=== PATIENT | female | born 1955 ===

== ENCOUNTER 2017-03-16 23:24 | Emergency (ER) | payer BC ==
[2017-03-17 00:08] VITALS: BP 118/72; PULSE 58; RESP 14; TEMP 98.3; O2SAT 98
[2017-03-17] MEDS ORDERED: Sodium Chloride 0.9% 1,000 ML IV STA (00:42)
[2017-03-17 00:59] LABS: BASO # 0.1 K/uL (0.0-0.2); BASO % 1.1 % (0.0-2.0); EOS # 0.1 K/uL (0.0-0.7); EOS % 0.8 % (0.0-4.0); HEMATOCRIT 36.2 % (34.0-47.0); LYMPH # 3.6 K/uL (1.0-4.3); LYMPH % 39.2 % (20.0-40.0); MEAN CELL VOLUME 93.4 fl (81.0-99.0); MEAN CORPUSCULAR HEMOGLOBIN 31.4 pg (27.0-31.0); MEAN CORPUSCULAR HGB CONC 33.6 g/dL (33.0-37.0); MEAN PLATELET VOLUME 8.8 fl (7.2-11.7); MONO # 0.6 K/uL (0.0-0.8); MONO % 6.2 % (0.0-10.0); NEUT # 4.8 K/uL (1.8-7.0); NEUT % 52.7 % (50.0-75.0); NRBC % 0.1 % (0.0-0.0); RED CELL DISTRIBUTION WIDTH 13.4 % (11.5-14.5); WHITE BLOOD COUNT 9.2 K/uL (4.8-10.8)
[2017-03-17 01:10] LABS: ALB/GLOB RATIO 1.5 (1.0-2.1); ALKALINE PHOSPHATASE 86 U/L (38-126); ALT/SGPT 50 U/L (9-52); AST/SGOT 39 U/L (14-36); BILIRUBIN,TOTAL 0.9 mg/dl (0.2-1.3); BLOOD UREA NITROGEN 15 mg/dl (7-17); CALCIUM 9.2 mg/dL (8.4-10.2); CARBON DIOXIDE 26 mmol/L (22-30); CHLORIDE 104 mmol/L (98-107); GFR AFRICAN-AMERICAN > 60; GLUCOSE,RANDOM 104 mg/dL (65-105); LIPASE 73 U/L (23-300); POTASSIUM 4.1 MMOL/L (3.6-5.0); SODIUM 138 mmol/l (132-148); TOTAL PROTEIN 7.1 G/DL (6.3-8.2)
--- NOTE | 2017-03-17 01:15 | ED PDOC ---
HPI: General Adult Time Seen by Provider: 03/17/17 00:05 Chief Complaint (Nursing): Upper Extremity Problem/Injury Chief Complaint (Provider): Multiple complaints History Per: Patient History/Exam Limitations: no limitations Additional Complaint(s): Josie Reynolds, a 62 year old female, presents to the ED today with multiple complaints. The patient firstly complains of upper right back pain which radiates down the right arm into the elbow. She states that the pain gets worse with movement. Denies fall or injury. Secondly the patient is complaining of epigastric pain which she describes as a "hunger like" pain. She says it's associated with nausea but no vomiting. Patient also reports that on occasion her right arm feels heavy but not weak. Past Medical History Reviewed: Historical Data, Nursing Documentation, Vital Signs Vital Signs: Last Vital Signs Temp 98.3 F 03/17/17 00:04 Pulse 58 L 03/17/17 00:04 Resp 14 03/17/17 00:04 BP 118/72 03/17/17 00:04 Pulse Ox 98 03/17/17 01:23 - Medical History PMH: Back Problems, HTN, Hypercholesterolemia, Hyperlipidemia - Surgical History Surgical History: Appendectomy, Cholecystectomy - Family History Family History: States: Unknown Family Hx - Home Medications Home Medications: Ambulatory Orders Medication Instructions Recorded Ibuprofen [Motrin Tab] 600 mg PO Q6 PRN 11/24/16 Aspirin [Adult Low Dose Aspirin EC] 81 mg PO DAILY #30 tablet. 11/25/16 Atorvastatin [Lipitor] 40 mg PO DAILY #30 tab 11/25/16 amLODIPine [Norvasc] 5 mg PO DAILY #30 tab 11/25/16 Famotidine [Pepcid] 20 mg PO BID #20 tab 03/17/17 Ibuprofen [Motrin Tab] 600 mg PO Q6 #30 tab 03/17/17 - Allergies Allergies/Adverse Reactions: Allergies Allergy/AdvReac Type Severity Reaction Status Date / Time No Known Allergies Allergy Verified 03/17/17 00:04 Review of Systems ROS Statement: Except As Marked, All Systems Reviewed And Found Negative Gastrointestinal: Positive for: Nausea, Abdominal Pain (Epigastric abdominal pain). Negative for: Vomiting Musculoskeletal: Positive for: Back Pain (back pain radiating down the right arm into the elbow) Physical Exam - Reviewed Nursing Documentation Reviewed: Yes Vital Signs Reviewed: Yes - Physical Exam Appears: Positive for: Non-toxic, No Acute Distress Head Exam: Positive for: ATRAUMATIC, NORMAL INSPECTION, NORMOCEPHALIC Skin: Positive for: Normal Color, Warm, Dry Eye Exam: Positive for: Normal appearance, EOMI, PERRL ENT: Positive for: Normal ENT Inspection Neck: Positive for: Normal, Painless ROM, Supple Cardiovascular/Chest: Positive for: Regular Rate, Rhythm, Chest Non Tender. Negative for: Tachycardia Respiratory: Positive for: Normal Breath Sounds. Negative for: Wheezing, Respiratory Distress Gastrointestinal/Abdominal: Positive for: Bowel Sounds, Soft, Tenderness (Mild epigastric tenderness to palpation) Extremity: Positive for: Normal ROM, Other (Motor strength equal in all 4 extremities.). Negative for: Tenderness, Pedal Edema, Deformity, Swelling Neurologic/Psych: Positive for: Alert, Oriented, Gait - Laboratory Results Result Diagrams: 03/17/17 00:56 03/17/17 00:56 - ECG O2 Sat by Pulse Oximetry: 98 (RA) Pulse Ox Interpretation: Normal Medical Decision Making Medical Decision Makin Initial Impression: Musculoskeletal Pain, Possible Nerve Entrapment, Possible Gastritis Initial Plan: * EKG * Comp Metabolic Panel * Lipase * Troponin * CBC * Chest Xray * NS 1000mls IV 500mls/hr * Pepcid 20mg IVP * Toradol 15mg IVP * Reevaluation 130 PT. feeling much better. Stable for d/c. encouraged f/u w/ PMD, return precautions given. Scribe Attestation Documented by Kell Billings acting as a scribe for Andrews Erwin MD. Provider Attestation All medical record entries made by the Scribe were at my direction and personally dictated by me. I have reviewed the chart and agree that the record accurately reflects my personal performance of the history, physical exam, medical decision making, and the department course for this patient. I have also personally directed, reviewed, and agree with the discharge instructions and disposition. Disposition - Clinical Impression Clinical Impression: Musculoskeletal pain - Disposition Referrals: Columba Carlos DO [Primary Care Provider] - Disposition: Routine/Home Disposition Time: 01:30 Condition: STABLE Prescriptions: Famotidine [Pepcid] 20 mg PO BID #20 tab Ibuprofen [Motrin Tab] 600 mg PO Q6 #30 tab Instructions: Paresthesia (ED) Forms: [employer] (Bulgarian)
--- NOTE | 2017-03-17 13:54 | RAD ---
HISTORY: Pneumonia. COMPARISON: 11/24/2016. TECHNIQUE: Chest PA and lateral FINDINGS: LUNGS: No active pulmonary disease. PLEURA: No significant pleural effusion identified. No pneumothorax apparent. CARDIOVASCULAR: No radiographic findings to suggest acute or significant cardiovascular disease. OSSEOUS STRUCTURES: No significant abnormalities. Mild thoracolumbar scoliosis. VISUALIZED UPPER ABDOMEN: Normal. OTHER FINDINGS: None. IMPRESSION: No active disease. No significant interval change compared to the prior examination(s).
--- NOTE | 2017-03-19 18:32 | CARD ---
APPROVED REPORT EKG Measurement Heart [id number] [place] [id number] <Conclusion> Sinus bradycardia Otherwise normal ECG
== END 2017-03-17 02:35 | disposition home or self-care (01) ==
LOC: H.ER 23:24
DX: M79.1 Myalgia (principal); R10.13 Epigastric pain; R20.2 Paresthesia of skin; E78.00 Pure hypercholesterolemia, unspecified; I10 Essential (primary) hypertension; Z79.82 Long term (current) use of aspirin
CPT/HCPCS: 71020; 80053; 83690; 84484; 85025; 96374; 96375; 99281; J1885; J2405; J7040

== ENCOUNTER 2017-05-10 19:29 | Inpatient (IN) | payer BC ==
--- NOTE | 2017-05-10 20:06 | ED PDOC ---
HPI: Female Pain Chief Complaint (Provider): lower abdominal pain x 5 hrs History Per: Patient History/Exam Limitations: no limitations Onset/Duration Of Symptoms: Hrs Current Symptoms Are (Timing): Still Present Severity: Moderate Pain Scale Rating Of: 8 Quality Of Discomfort: Sharp Associated Symptoms: Urinary Symptoms. denies: Fever, Chills, Nausea, Vomiting , Diarrhea, Back Pain Alleviating Factors: None Additional History Per: Patient Additional Complaint(s): CC: lower abd pain x 5 hrs 62 y/o F presenting with sharp acute onset lower abdominal pain since 3 pm today. Associated with hematuria, frequency and burning with urination. Denies f /c/back pain/n/v/d. States history of kidney stones in two children but no personal history. Aggravated by movement, no alleviating factors. Tried to take some OTC pyridine without any improvement. No vaginal bleeding, hx of partial hysterectomy. PMD: Dr. Azul Abnormal Vaginal Bleeding: No Last Menstral Period: post menopausal <Tru Anderson - Last Filed: 05/11/17 00:27> <Frandy Torres - Last Filed: 05/11/17 05:14> Time Seen by Provider: 05/10/17 19:39 Chief Complaint (Nursing): Female Genitourinary Past Medical History Vital Signs: Last Vital Signs Temp 98.9 F 05/10/17 19:36 Pulse 108 H 05/10/17 19:36 Resp 18 05/10/17 19:36 BP 150/91 H 05/10/17 19:36 Pulse Ox 97 05/10/17 19:36 - Medical History PMH: Back Problems, HTN, Hypercholesterolemia, Hyperlipidemia - Surgical History Surgical History: Appendectomy, Cholecystectomy - Family History Family History: States: Unknown Family Hx <Tru Anderson - Last Filed: 05/11/17 00:27> Vital Signs: Last Vital Signs Temp 98.6 F 05/11/17 04:31 Pulse 74 05/11/17 04:31 Resp 19 05/11/17 04:31 BP 100/68 05/11/17 04:31 Pulse Ox 97 05/11/17 04:31 <Frandy Torres - Last Filed: 05/11/17 05:14> - Home Medications Home Medications: Ambulatory Orders Medication Instructions Recorded Atorvastatin [Lipitor] 40 mg PO DAILY 05/10/17 Lisinopril [Zestril] 20 mg PO DAILY 05/10/17 Omeprazole [Omeprazole] 40 mg PO PRN PRN 05/10/17 - Allergies Allergies/Adverse Reactions: Allergies Allergy/AdvReac Type Severity Reaction Status Date / Time No Known Allergies Allergy Verified 03/17/17 00:04 Review of Systems ROS Statement: Except As Marked, All Systems Reviewed And Found Negative <Tru Anderson - Last Filed: 05/11/17 00:27> Physical Exam - Physical Exam Appears: Positive for: Uncomfortable Head Exam: Positive for: ATRAUMATIC Skin: Positive for: Warm, Dry. Negative for: Diaphoresis, Pallor Eye Exam: Positive for: Normal appearance, EOMI Cardiovascular/Chest: Positive for: Tachycardia Respiratory: Positive for: Normal Breath Sounds. Negative for: Stridor, Wheezing, Respiratory Distress Gastrointestinal/Abdominal: Positive for: Soft, Tenderness (LLQ tenderness and left CVA tenderness). Negative for: Distended, Rebound Back: Positive for: L CVA Tenderness. Negative for: R CVA Tenderness Extremity: Positive for: Normal ROM. Negative for: Tenderness, Pedal Edema <Tru Anderson F - Last Filed: 05/11/17 00:27> - Laboratory Results Result Diagrams: 05/10/17 20:15 05/10/17 20:15 Urine dip results: Positive for: Leukocyte Esterase, Blood, Nitrate - ECG O2 Sat by Pulse Oximetry: 97 - Progress ED Course And Treament: Abdominal pain + hematuria poss. renal calculi v. cystitis v. pyelonephritis VS stable, initial tachycardia cbc cmp UA lactic acid CT abdo pelvis, w/o contrast; stone protocol IV toradol NS 1 L bolus Labs: leukocytosis 19.8, BUN 20, UA nitrate pos, large leuks; UCX sent start IV rocephin [address]: no renal calculi admit to [facility] for IV abx Re-evaluation Time: 22:25 (leukocytosis, UA nitrate pos, large leuks; start IV rocephin 1 gm) Condition: Re-examined, Improving,but remains with symptoms <Tru Anderson - Last Filed: 05/11/17 00:27> - Laboratory Results Result Diagrams: 05/10/17 20:15 05/10/17 20:15 <Frandy Torres - Last Filed: 05/11/17 05:14> Medical Decision Making Medical Decision Making: Arrangements made by this provider with Dr Mccall (medicine ribbon lapper tender) for admission <Frandy Torres - Last Filed: 05/11/17 05:14> Disposition - Patient ED Disposition Is Patient to be Admitted: Yes - Disposition Disposition Time: 00:28 - Pt Status Changed To: Hospital Disposition Of: Observation <Tru Anderson - Last Filed: 05/11/17 00:27> <Frandy Torres - Last Filed: 05/11/17 05:14> - Clinical Impression Clinical Impression: Pyelonephritis, acute - Disposition Condition: STABLE
[2017-05-10] MEDS ORDERED: Sodium Chloride 0.9% 1,000 ML IV SCH ×2 (20:15→20:54)
[2017-05-10 20:22] LABS: HEMATOCRIT 40.4 % (34.0-47.0); MEAN CELL VOLUME 94.6 fl (81.0-99.0); MEAN CORPUSCULAR HGB CONC 32.8 g/dL (33.0-37.0); RED CELL DISTRIBUTION WIDTH 13.2 % (11.5-14.5); WHITE BLOOD COUNT 19.8 K/uL (4.8-10.8)
[2017-05-10 20:32] LABS: RBC URINE 3893 /hpf (0-3); URINE BILIRUBIN NEGATIVE (NEGATIVE); URINE BLOOD LARGE (NEGATIVE); URINE COLOR AMBER (YELLOW); URINE GLUCOSE (UA) NEG (Normal); URINE KETONE NEGATIVE (NEGATIVE); URINE LEUKOCYTE ESTERASE MOD Leu/uL (Negative); URINE PROTEIN >=500 mg/dL (NEGATIVE); WBC CLUMPS MANY /hpf; WBC URINE 1561 /hpf (0-5)
[2017-05-10 20:34] LABS: ALB/GLOB RATIO 1.4 (1.0-2.1); ALKALINE PHOSPHATASE 118 U/L (38-126); ALT/SGPT 36 U/L (9-52); AST/SGOT 28 U/L (14-36); BILIRUBIN,TOTAL 0.8 mg/dl (0.2-1.3); BLOOD UREA NITROGEN 20 mg/dl (7-17); CALCIUM 9.7 mg/dL (8.4-10.2); CARBON DIOXIDE 22 mmol/L (22-30); CHLORIDE 105 mmol/L (98-107); GFR AFRICAN-AMERICAN > 60; GLUCOSE,RANDOM 110 mg/dL (65-105); POTASSIUM 4.2 MMOL/L (3.6-5.0); SODIUM 142 mmol/l (132-148); TOTAL PROTEIN 8.4 G/DL (6.3-8.2)
[2017-05-10] MEDS ORDERED: cefTRIAXone (Rocephin) 1 gm Inj ONE (20:39)
--- NOTE | 2017-05-10 22:08 | CT ---
EXAM: CT Abdomen and Pelvis Without Intravenous Contrast EXAM DATE/TIME: 05/10/2017 8:01 PM CLINICAL HISTORY: 62 years old, female; Pain; Abdominal pain; Localized; Lower; Prior surgery; Surgery date: 6+ months; Surgery type: B/l breast implant. Cholecystectomy appendectomy hysterectomy; Patient HX: HX of constipation hematuria dysuria. K stone; Additional info: Poss. Renal calculus TECHNIQUE: Axial computed tomography images of the abdomen and pelvis without intravenous contrast. All CT scans at this facility use one or more dose reduction techniques, viz.: automated exposure control; ma/kV adjustment per patient size (including targeted exams where dose is matched to indication; i.e. head); or iterative reconstruction technique. Coronal and sagittal reformatted images were created and reviewed. COMPARISON: CT - ABD PELVIS PO IV CONTRAST 02/04/2016 7:12:14 PM FINDINGS: Lower thorax: There are bilateral breast implants. Heart size is normal. There is minimal scarring at the lung bases ABDOMEN: Liver: unremarkable Gallbladder and bile ducts: Gallbladder is surgically absent. Common duct is unremarkable. Pancreas: Pancreas is mildly atrophic. Spleen: unremarkable Adrenals: unremarkable Kidneys and ureters: There are bilateral renal cysts. There are no renal or ureteral stones. There is no pelvocaliectasis or ureterectasis. Stomach and bowel: Stomach is distended with ingested material. Rotation is normal. Small bowel is mildly distended with fluid and air. There is fecalization of the distal and terminal ileum. Appendix is surgically absent.Colon is incompletely distended which limits evaluation. There is scattered diverticulosis. Appendix: See above. PELVIS: Bladder: unremarkable Reproductive: Uterus is absent. There are no adnexal masses. ABDOMEN and PELVIS: Intraperitoneal space: There is no free air or free fluid. Bones/joints: There is a mild convex left lumbar curve.There are degenerative changes in the osseus structures. Soft tissues: unremarkable Vasculature: Vascular structures are unremarkable. Lymph nodes: There is no pathologic adenopathy. IMPRESSION: No renal or ureteral stones or hydronephrosis; diverticulosis without CT findings of diverticulitis
[2017-05-10] MEDS: Sodium Chloride 0.9% 1,000 ML IV SCH (23:15)
[2017-05-11 07:27] LABS: HEMATOCRIT 31.9 % (34.0-47.0); MEAN CELL VOLUME 95.2 fl (81.0-99.0); MEAN CORPUSCULAR HEMOGLOBIN 31.3 pg (27.0-31.0); MEAN CORPUSCULAR HGB CONC 32.9 g/dL (33.0-37.0); RED CELL DISTRIBUTION WIDTH 12.8 % (11.5-14.5); WHITE BLOOD COUNT 11.5 K/uL (4.8-10.8)
[2017-05-11] MEDS: Sodium Chloride 0.9% 1,000 ML IV SCH ×2 (07:35→09:23)
[2017-05-11 07:38] LABS: ALB/GLOB RATIO 1.2 (1.0-2.1); ALKALINE PHOSPHATASE 89 U/L (38-126); ALT/SGPT 30 U/L (9-52); AST/SGOT 17 U/L (14-36); BILIRUBIN,TOTAL 0.6 mg/dl (0.2-1.3); BLOOD UREA NITROGEN 22 mg/dl (7-17); CALCIUM 8.2 mg/dL (8.4-10.2); CHLORIDE 111 mmol/L (98-107); GFR AFRICAN-AMERICAN > 60; GLUCOSE,RANDOM 93 mg/dL (65-105); POTASSIUM 4.2 MMOL/L (3.6-5.0); SODIUM 142 mmol/l (132-148); TOTAL PROTEIN 5.8 G/DL (6.3-8.2)
[2017-05-11 07:55] LABS: CARBON DIOXIDE 21 mmol/L (22-30)
[2017-05-11 08:11] VITALS: BP 91/50; PULSE 61; RESP 20; TEMP 98.3; O2SAT 95
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
== END 2017-05-11 14:07 | disposition home or self-care (01) | DRG 690 ==
LOC: H.ER 19:29 → H.ERHOLD 23:05 → H.MEDSURG1 05-11 00:03
PROVIDERS: ADMIT Family Medicine; ATTEND Family Medicine
DX: N10 Acute pyelonephritis (principal); I10 Essential (primary) hypertension; E78.00 Pure hypercholesterolemia, unspecified; E78.5 Hyperlipidemia, unspecified; R31.9 Hematuria, unspecified

== ENCOUNTER 2017-10-05 12:00 | Emergency (ER) | payer BC ==
[2017-10-05 12:16] VITALS: BP 119/84; PULSE 75; TEMP 98.3; O2SAT 98
[2017-10-05 12:53] VITALS: RESP 18
--- NOTE | 2017-10-05 12:58 | ED PDOC ---
HPI: SOB/CHF/COPD Time Seen by Provider: 10/05/17 12:28 Chief Complaint (Nursing): Shortness Of Breath Chief Complaint (Provider): Sore throat History Per: Patient History/Exam Limitations: no limitations Onset/Duration Of Symptoms: Days (2 days ago) Current Symptoms Are (Timing): Still Present Additional Complaint(s): 62 yo female history of hypertension and chronic back pain, presents to the ED complaining of sore throat, with a sensation of swelling to the point where it makes it difficult for her to breath, onset of 2 days ago. Patient reports being seen by her own doctor, followed by a visit with an ENT specialist 2 days ago. A laryngoscopy was performed noting inflammation of the vocal cords, but no obstruction. She was then given an injection of steroids, and the ENT reassured her that she would be fine, but the patient was still concerned for her breathing, regardless of being able to eat, breath, and speak normally. Past Medical History Reviewed: Historical Data, Nursing Documentation, Vital Signs Vital Signs: Last Vital Signs Temp 98.3 F 10/05/17 12:13 Pulse 75 10/05/17 12:13 Resp 18 10/05/17 12:52 BP 119/84 10/05/17 12:13 Pulse Ox 98 10/05/17 13:40 - Medical History PMH: Back Problems, HTN, Hypercholesterolemia, Hyperlipidemia Denies: HIV, Chronic Kidney Disease - Surgical History Surgical History: Appendectomy, Cholecystectomy - Family History Family History: States: Unknown Family Hx - Social History Current smoker - smoking cessation education provided: No Ex-Smoker (has not smoked in the last 12 months): No Alcohol: None Drugs: Denies - Home Medications Home Medications: Ambulatory Orders Medication Instructions Recorded Atorvastatin [Lipitor] 40 mg PO DAILY 05/10/17 Lisinopril [Zestril] 20 mg PO DAILY 05/10/17 Omeprazole [Omeprazole] 40 mg PO PRN PRN 05/10/17 predniSONE [Prednisone] 20 mg PO DAILY #10 tab 10/05/17 - Allergies Allergies/Adverse Reactions: Allergies Allergy/AdvReac Type Severity Reaction Status Date / Time No Known Allergies Allergy Verified 10/05/17 12:12 Review of Systems ROS Statement: Except As Marked, All Systems Reviewed And Found Negative ENT: Positive for: Throat Pain, Throat Swelling Respiratory: Positive for: Shortness of Breath Physical Exam - Reviewed Nursing Documentation Reviewed: Yes Vital Signs Reviewed: Yes - Physical Exam Appears: Positive for: Well, Non-toxic, No Acute Distress Head Exam: Positive for: ATRAUMATIC, NORMAL INSPECTION, NORMOCEPHALIC Skin: Positive for: Normal Color, Warm, DRY Eye Exam: Positive for: EOMI, Normal appearance, PERRL ENT: Positive for: Normal ENT Inspection, Pharynx Is (oropharynx reveals diffuse injection), Tonsillar Swelling (inflammation but the air is patent,), Other Neck: Positive for: Normal (no obstruction, no masses, no stridor, no adenopathy , no edema) Cardiovascular/Chest: Positive for: Regular Rate, Rhythm. Negative for: Murmur Respiratory: Positive for: Normal Breath Sounds. Negative for: Respiratory Distress Gastrointestinal/Abdominal: Positive for: Normal Exam, Soft. Negative for: Tenderness Back: Positive for: Normal Inspection Extremity: Positive for: Normal ROM. Negative for: Pedal Edema, Deformity Neurologic/Psych: Positive for: Alert, Oriented. Negative for: Motor/Sensory Deficits - ECG O2 Sat by Pulse Oximetry: 98 (RA) Pulse Ox Interpretation: Normal Medical Decision Making Medical Decision Making: Time: --12:36 Impression: --Laryngitis vs. Tracheitis, rule out obstruction Plan: --Neck soft tissue ct Reassess -- Scribe Attestation: Documented by Saw Bonner acting as a scribe for Gavin Reddy DO. Provider Attestation: All medical record entries made by the Scribe were at my direction and personally dictated by me. I have reviewed the chart and agree that the record accurately reflects my personal performance of the history, physical exam, medical decision making, and the department course for this patient. I have also personally directed, reviewed, and agree with the discharge instructions and disposition. Disposition - Clinical Impression Clinical Impression: Tracheitis - Patient ED Disposition Is Patient to be Admitted: No - Disposition Referrals: Columba Carlos DO [Primary Care Provider] - Disposition: Routine/Home Disposition Time: 15:10 Condition: STABLE Prescriptions: predniSONE [Prednisone] 20 mg PO DAILY #10 tab Forms: [employer] ([place])
--- NOTE | 2017-10-05 13:37 | CT ---
PROCEDURE: CT NECK WITHOUT CONTRAST HISTORY: stridor COMPARISON: None. TECHNIQUE: CT of the neck without intravenous contrast. Coronal and sagittal reformats generated. Radiation dose: DLP mGy-cm This CT exam was performed using one or more of the following dose reduction techniques: Automated exposure control, adjustment of the mA and/or kV according to patient size, and/or use of iterative reconstruction technique. FINDINGS: NASOPHARYNX: Unremarkable. SUPRAHYOID NECK: Unremarkable oropharynx, oral cavity, parapharyngeal space and retropharyngeal space. INFRAHYOID NECK: Unremarkable larynx, hypopharynx, and supraglottic space. Vocal cords intact. MASS: None. GLANDS: Parotid and submandibular glands unremarkable. Normal size thyroid gland, without nodule. LYMPH NODES: Normal. No lymphadenopathy. CERVICAL SPINE: No fracture or focal lesion. OTHER FINDINGS: Left apical pleural-parenchymal thickening. IMPRESSION: Left apical pleural-parenchymal thickening. No significant abnormality in the neck.
== END 2017-10-05 15:30 | disposition home or self-care (01) ==
LOC: H.ER 12:00
DX: J04.10 Acute tracheitis without obstruction (principal); E78.00 Pure hypercholesterolemia, unspecified; G89.29 Other chronic pain; I10 Essential (primary) hypertension; J38.3 Other diseases of vocal cords

== ENCOUNTER 2017-10-17 11:11 | Emergency (ER) | payer BC, OTHER ==
[2017-10-17 11:18] VITALS: BMI 25.9
--- NOTE | 2017-10-17 12:12 | RAD ---
PROCEDURE: Cervical Spine Radiographs. HISTORY: Pain. COMPARISON: None. FINDINGS: BONES: Alignment maintained. No fracture. Dens Intact. DISC SPACES: Multilevel disc space narrowing. SOFT TISSUES: Normal. No prevertebral soft tissue swelling. OTHER FINDINGS: None. IMPRESSION: No acute fracture. Mild multilevel degenerative changes
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
[2017-10-17 13:46] VITALS: BP 124/64; PULSE 53; RESP 18; TEMP 98
[2017-10-17 14:37] VITALS: O2SAT 97
== END 2017-10-17 14:59 | disposition home or self-care (01) ==
LOC: H.ER 11:11
DX: M54.2 Cervicalgia (principal); V43.52XA Car driver injured in collision with other type car in traffic accident, initial encounter; Y92.410 Unspecified street and highway as the place of occurrence of the external cause; E78.00 Pure hypercholesterolemia, unspecified; I10 Essential (primary) hypertension

== ENCOUNTER 2017-11-07 09:49 | Emergency (ER) | payer BC ==
[2017-11-07 09:49] VITALS: BMI 25.9
[2017-11-07 09:56] VITALS: BP 138/84; PULSE 68; RESP 17; TEMP 98.3; O2SAT 97
[2017-11-07] MEDS ORDERED: Sodium Chloride 0.9% 1,000 ML IV STA (10:29)
--- NOTE | 2017-11-07 10:37 | ED PDOC ---
HPI: Female Pain Time Seen by Provider: 11/07/17 10:11 Chief Complaint (Nursing): Female Genitourinary Chief Complaint (Provider): Dysuria History Per: Patient History/Exam Limitations: no limitations Onset/Duration Of Symptoms: Days (1 week) Current Symptoms Are (Timing): Still Present Additional Complaint(s): Pt. with weakness, dysuria, freq of urination, urgency of urination. Seen by Deejay and started on cipro and pyridium. Did not resolve symptoms and cx came as resistant to it. Pt. also with left lower back pain. Blood in urine. Sent to the ED to eval for possible stone. No dizziness, headaches, chest pain. Past Medical History Reviewed: Nursing Documentation, Vital Signs Vital Signs: Last Vital Signs Temp 98.3 F 11/07/17 09:55 Pulse 68 11/07/17 09:55 Resp 17 11/07/17 09:55 BP 138/84 11/07/17 09:55 Pulse Ox 97 11/07/17 09:55 - Medical History PMH: Back Problems, HTN, Hypercholesterolemia Denies: HIV, Chronic Kidney Disease - Surgical History Surgical History: Appendectomy, Cholecystectomy - Family History Family History: States: Unknown Family Hx - Living Arrangements Living Arrangements: With Family - Home Medications Home Medications: Ambulatory Orders Medication Instructions Recorded Atorvastatin [Lipitor] 40 mg PO DAILY 05/10/17 Lisinopril [Zestril] 20 mg PO DAILY 05/10/17 Omeprazole [Omeprazole] 40 mg PO PRN PRN 05/10/17 predniSONE [Prednisone] 20 mg PO DAILY #10 tab 10/05/17 Cyclobenzaprine [Cyclobenzaprine 10 mg PO Q8H PRN #12 tab 10/17/17 HCl] Naproxen [Naprosyn] 500 mg PO BID PRN #20 tablet 10/17/17 Ciprofloxacin HCl [Cipro] 500 mg PO BID 7 Days tab 11/07/17 Metronidazole [Flagyl] 500 mg PO TID 7 Days tablet 11/07/17 Nitrofurantoin Macrocrystals 100 mg PO BID #10 cap 11/07/17 [Macrobid] - Allergies Allergies/Adverse Reactions: Allergies Allergy/AdvReac Type Severity Reaction Status Date / Time No Known Allergies Allergy Verified 10/05/17 12:12 Review of Systems ROS Statement: Except As Marked, All Systems Reviewed And Found Negative Gastrointestinal: Positive for: Abdominal Pain Genitourinary Female: Positive for: Dysuria, Hematuria Musculoskeletal: Positive for: Back Pain Physical Exam - Reviewed Nursing Documentation Reviewed: Yes Vital Signs Reviewed: Yes - Physical Exam Appears: Positive for: Non-toxic, No Acute Distress Head Exam: Positive for: ATRAUMATIC, NORMAL INSPECTION, NORMOCEPHALIC Skin: Positive for: Normal Color, Warm, DRY Eye Exam: Positive for: EOMI, Normal appearance, PERRL ENT: Positive for: Normal ENT Inspection Neck: Positive for: Normal, Painless ROM Cardiovascular/Chest: Positive for: Regular Rate, Rhythm Respiratory: Positive for: CNT, Normal Breath Sounds Gastrointestinal/Abdominal: Positive for: Bowel Sounds, Soft, Tenderness ( suprapubic) Back: Positive for: L CVA Tenderness Extremity: Positive for: Normal ROM. Negative for: Tenderness, Pedal Edema Neurologic/Psych: Positive for: Alert, Oriented - Laboratory Results Result Diagrams: 11/07/17 11:51 11/07/17 11:51 Urine dip results: Positive for: Leukocyte Esterase, Nitrate - ECG O2 Sat by Pulse Oximetry: 97 Pulse Ox Interpretation: Normal - CT Scan/US ct Other Rad Studies (CT/US): Read By Radiologist Other Rad Interpretation: possible colitis mild; uti present; no kidney stones in ureter - Progress ED Course And Treament: 1337: Stable. AAOx3. Will dc with macrobid and pt. to take flagyl/cipro for possible colitis. Pain free. Tolerated po. Disposition - Clinical Impression Clinical Impression: UTI (urinary tract infection), Colitis, Kidney stones, Kidney cysts - Patient ED Disposition Is Patient to be Admitted: No Counseled Patient/Family Regarding: Studies Performed, Diagnosis, Need For Followup, Rx Given - Disposition Referrals: Ubaldo Cornelius MD [Staff Provider] - 11/10/17 Disposition: Routine/Home Disposition Time: 13:41 Condition: STABLE Additional Instructions: Return if not better in 3 days. You have renal cyst as well. See the primary care doctor for follow up. Prescriptions: Ciprofloxacin HCl [Cipro] 500 mg PO BID 7 Days tab Metronidazole [Flagyl] 500 mg PO TID 7 Days tablet Nitrofurantoin Macrocrystals [Macrobid] 100 mg PO BID #10 cap Instructions: Kidney Stones in Adults, Urinary Tract Infections in Adults, Inflammatory Bowel Disease (DC) Forms: [employer] (Greek), [facility] ED School/Work Excuse
--- NOTE | 2017-11-07 11:25 | CT ---
PROCEDURE: CT Abdomen and Pelvis without intravenous contrast HISTORY: R/O stone COMPARISON: Abdomen and pelvis CT without contrast 05/10/2017. TECHNIQUE: Helical CT of the abdomen and pelvis was performed without oral or intravenous contrast as per referring physician request.. Contrast Dose: None Radiation dose: Total exam DLP = 440.71 mGy-cm. This CT exam was performed using one or more of the following dose reduction techniques: Automated exposure control, adjustment of the mA and/or kV according to patient size, and/or use of iterative reconstruction technique. FINDINGS: LOWER THORAX: Minimal fibrosis again seen the medial right base. Bilateral breast implantation reiterated. LIVER: A few punctate hepatic granulomata are again identified with a small lucency at the medial left lobe liver measuring 1.2 cm unchanged dating back at least to prior abdomen and pelvis CT examination with contrast dated 02/04/2016. GALLBLADDER AND BILE DUCTS: Surgically absent gallbladder again evident. PANCREAS: Unremarkable. No gross lesion or ductal dilatation. SPLEEN: Unremarkable. ADRENALS: Unremarkable. No mass. KIDNEYS AND URETERS: A stable small cyst is noted at the lower pole right kidney exophytic medially measuring 1.9 cm and 9 Hounsfield units. A punctate intrarenal calcified at the lower pole left kidney. None is seen at the right. No obstructive uropathy bilaterally or perinephric reaction. VASCULATURE: Unremarkable. No aortic aneurysm. BOWEL: The stomach is largely decompressed with limited residual food remaining in the lumen. Lack of oral and intravenous contrast limits evaluation the bowel. No bowel obstruction is evident. Submucosal fatty changes at the ascending through proximal to mid transverse large-bowel segments may reflect chronic inflammatory process. No definite pericolic reaction associated with a segment and appears collapsed. An element of segmental colitis is difficult to completely exclude due to collapsed but clinical correlation is recommended involving the right hemicolon and transverse colon. Sigmoid diverticulosis is again identified without diverticulitis. APPENDIX: Not identified. No CT evidence to suggest appendicitis. PERITONEUM: Unremarkable. No free fluid. No free air. LYMPH NODES: Unremarkable. No enlarged lymph nodes. BLADDER: Unremarkable. REPRODUCTIVE: Prior hysterectomy again evident. BONES: No acute fracture. OTHER FINDINGS: None. IMPRESSION: 1. A punctate intrarenal calculus identified at the mid to lower pole left kidney. No obstructive uropathy bilaterally a stable small cyst seen at the lower pole right kidney. No perinephric reaction bilaterally. 2. The ascending and majority of transverse colon segments are collapsed with a fatty submucosal appears that may indicate chronic inflammation. Evaluation the mural thickness is compromised by collapse and lack of oral contrast administration. No pericolic reaction is appreciated. Active segmental colitis is difficult to completely exclude. Further clinical correlation advised. 3. Surgically absent gallbladder reiterated. 4. Prior hysterectomy reiterated.
[2017-11-07 11:52] LABS: VENOUS BLOOD GAS PCO2 51 mmHg (40-60); VENOUS BLOOD GAS PO2 34 mm/Hg (30-55); VENOUS BLOOD PH 7.34 (7.32-7.43)
[2017-11-07 11:57] LABS: BASO # 0.1 K/uL (0.0-0.2); BASO % 1.1 % (0.0-2.0); EOS # 0.1 K/uL (0.0-0.7); EOS % 0.6 % (0.0-4.0); HEMOGLOBIN 11.7 g/dL (12.0-16.0); LYMPH # 2.6 K/uL (1.0-4.3); LYMPH % 26.3 % (20.0-40.0); MEAN CELL VOLUME 97.1 fl (81.0-99.0); MEAN CORPUSCULAR HEMOGLOBIN 32.6 pg (27.0-31.0); MEAN CORPUSCULAR HGB CONC 33.6 g/dL (33.0-37.0); MEAN PLATELET VOLUME 8.2 fl (7.2-11.7); MONO # 0.5 K/uL (0.0-0.8); MONO % 5.4 % (0.0-10.0); NEUT # 6.7 K/uL (1.8-7.0); NEUT % 66.6 % (50.0-75.0); NRBC % 0.1 % (0.0-0.0); RBC 3.58 Mil/uL (3.80-5.20); RED CELL DISTRIBUTION WIDTH 12.8 % (11.5-14.5); WHITE BLOOD COUNT 10.1 K/uL (4.8-10.8)
[2017-11-07 12:11] LABS: ALB/GLOB RATIO 1.2 (1.0-2.1); ALBUMIN 3.9 g/dL (3.5-5.0); ALT/SGPT 36 U/L (9-52); AST/SGOT 22 U/L (14-36); BLOOD UREA NITROGEN 19 mg/dl (7-17); CALCIUM 9.1 mg/dL (8.4-10.2); GFR AFRICAN-AMERICAN > 60; GFR NON-AFRICAN AMERICAN > 60
== END 2017-11-07 13:05 | disposition home or self-care (01) ==
LOC: H.ER 09:49
DX: N39.0 Urinary tract infection, site not specified (principal); K52.9 Noninfective gastroenteritis and colitis, unspecified; I10 Essential (primary) hypertension; N28.1 Cyst of kidney, acquired; N20.0 Calculus of kidney; E78.00 Pure hypercholesterolemia, unspecified; Z90.710 Acquired absence of both cervix and uterus
CPT/HCPCS: 74176; 80053; 82803; 85025; 87040; 96361; 96374; 99284; J1885; J7040